=== PATIENT | female | born 1975 | race Caucasian/White ===

== ENCOUNTER 2016-08-27 18:28 | Emergency (ER) | payer SELFPAY ==
[~2016-08-27] VITALS: Ht 157.5 cm; Wt 57.0 kg
[~2016-08-27 18:28] MED LIST: CHLO25CA PO; CLON.1 PO
[2016-08-27 18:39] VITALS: BP 136/85; PULSE 96; RESP 22; TEMP 98; O2SAT 97
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
[2016-08-27] MEDS ORDERED: SODIUM CHLORIDE 0.9% FLUSH 10 ML FLUSH IVF PRN (19:00)
[2016-08-27 19:03] VITALS: BP 136/85; PULSE 79; RESP 18; O2SAT 97
[2016-08-27] MEDS ORDERED: ALPR1TAB3 PO (19:03)
[2016-08-27 19:07] VITALS: RESP 18; O2SAT 97
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
[2016-08-27] MEDS ORDERED: KETOROLAC TROMETHAMINE 60 MG/2 ML (IM) VIAL IM ONE (20:00)
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
[2016-08-27 20:47] LABS: BLOOD, URINE NEG (NEG); COMMENT (UR) CULT NOT INDICATED; CULTURE IF INDICATED CULT NOT INDICATED; GLUCOSE,URINE NEG (NEG); KETONE, URINE NEG (NEG); NITRITE,URINE NEG (NEG); PH, URINE 6.5 (5.0-8.5); SQUAMOUS EPITHELIAL CELL URINE 3 /hpf (0-5); URINE COLOR DARK-YELLOW (YELLW/STRAW)
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
[2016-08-27] MEDS ORDERED: EXTR500C PO (21:01)
[2016-08-27] MEDS ORDERED: IBUP800T23 PO (21:01)
[2016-08-27] MEDS ORDERED: ORPH100T99 PO (21:01)
== END 2016-08-27 22:06 | disposition home or self-care (01) ==
LOC: NEPC 18:28
DX: S16.1XXA Strain of muscle, fascia and tendon at neck level, initial encounter (principal); S80.212A Abrasion, left knee, initial encounter; S90.512A Abrasion, left ankle, initial encounter; S39.012A Strain of muscle, fascia and tendon of lower back, initial encounter; R51 Headache; R06.02 Shortness of breath; V03.99XA Pedestrian with other conveyance injured in collision with car, pick-up truck or van, unspecified whether traffic or nontraffic accident, initial encounter; Y93.55 Activity, bike riding; Y92.410 Unspecified street and highway as the place of occurrence of the external cause; Y99.9 Unspecified external cause status
CPT/HCPCS: 70450; 71010; 72100; 72125; 81001; 96372; 99285; J1885; L0150

== ENCOUNTER 2016-10-10 08:20 | Emergency (ER) | payer SELFPAY ==
[~2016-10-10 08:20] MED LIST changes: +ALPR1TAB3 PO; -CHLO25CA PO; -CLON.1 PO; +EXTR500C PO; +IBUP800T23 PO; +ORPH100T99 PO
[2016-10-10 08:22] VITALS: BP 136/92; PULSE 80; RESP 24; TEMP 97.8; O2SAT 99
[2016-10-10 08:32] VITALS: BP 136/78; PULSE 75; RESP 14; TEMP 98.5; O2SAT 97
[2016-10-10 08:43] VITALS: O2SAT 99
[2016-10-10] MEDS ORDERED: SODIUM CHLORIDE 0.9% FLUSH 10 ML FLUSH IVF PRN (08:45)
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
[2016-10-10] MEDS ORDERED: LORazepam 2 MG/ML VIAL IV PUSH ONE (09:00)
[2016-10-10] MEDS ORDERED: DICYCLOMINE HCL 20 MG/2 ML VIAL IM ONE (09:00)
[2016-10-10] MEDS ORDERED: SODIUM CHLOR 0.9% 1000 ML INJ 1,000 ML IV ONE (09:00)
[2016-10-10 09:52] LABS: BLOOD, URINE NEG (NEG); GLUCOSE,URINE NEG (NEG); KETONE, URINE NEG (NEG); NITRITE,URINE NEG (NEG); PH, URINE 5.5 (5.0-8.5); SQUAMOUS EPITHELIAL CELL URINE <1 /hpf (0-5); URINE COLOR LIGHT-YELLOW (YELLW/STRAW)
[2016-10-10 09:54] LABS: COMMENT (UR) CULT NOT INDICATED; CULTURE IF INDICATED CULT NOT INDICATED
[2016-10-10 10:12] LABS: ANION GAP 9 MEQ/L (5-15); AST (GOT) 30 U/L (15-37); BICARBONATE 29.7 MEQ/L (21.0-32.0); BLOOD UREA NITROGEN 10 MG/DL (7-18); CHLORIDE 102 MEQ/L (98-107); GLOMERULAR FILTRATION RATE 110 ML/MIN (>89); POTASSIUM 3.9 MEQ/L (3.5-5.1); SODIUM (NA) 141 MEQ/L (136-145)
[2016-10-10 10:13] LABS: ALT (GPT) 43 U/L (10-53)
[2016-10-10 10:15] LABS: ALKALINE PHOSPHATASE 59 U/L (45-117); TOTAL BILIRUBIN ADULT 0.3 MG/DL (0.2-1.0)
[2016-10-10 10:16] VITALS: BP 134/83
[2016-10-10 10:17] VITALS: BP 133/80; RESP 14
[2016-10-10 10:18] VITALS: BP 146/93; RESP 14
[2016-10-10 10:22] LABS: AUTOMATED NEUTROPHIL # 2.6 TH/MM3 (1.8-7.7); BASOPHIL % 0.4 % (0.0-2.0); EOSINOPHIL # 0.5 TH/MM3 (0-0.4); EOSINOPHIL % 7.6 % (0.0-4.0); HEMATOCRIT 30.9 % (35.0-46.0); HEMO FLAGS DIFF FINAL; LYMPH % 41.9 % (9.0-44.0); LYMPHOCYTE # 2.6 TH/MM3 (1.0-4.8); MEAN CELL VOLUME 91.1 FL (80.0-100.0); MEAN CORPUSCULAR HEMOGLOBIN 30.8 PG (27.0-34.0); MEAN CORPUSCULAR HGB CONC 33.8 % (32.0-36.0); MONO % 8.3 % (0.0-8.0); NEUT % 41.8 % (16.0-70.0); PLATELET COUNT 214 TH/MM3 (150-450); RED BLOOD COUNT 3.39 MIL/MM3 (4.00-5.30); RED CELL DISTRIBUTION WIDTH 13.8 % (11.6-17.2); WHITE BLOOD COUNT 6.3 TH/MM3 (4.0-11.0)
[2016-10-10] MEDS ORDERED: LORA-392 PO (10:23)
--- NOTE | 2016-10-11 09:49 | EKG ---
Date Performed: 10/10/2016 Time Performed: 09:03:14 PTAGE: 41 years EKG: Sinus rhythm POSSIBLE LEFT ATRIAL ENLARGEMENT POSSIBLE LEFT VENTRICULAR HYPERTROPHY ABNORMAL ECG PREVIOUS TRACING : 02/04/2010 20.53 DOCTOR: Frankie Rosado Interpretating Date/Time 10/11/2016 09:39:51
== END 2016-10-10 11:30 | disposition home or self-care (01) ==
LOC: NEPC 08:20
DX: R11.2 Nausea with vomiting, unspecified (principal); D64.9 Anemia, unspecified; R10.9 Unspecified abdominal pain; R42 Dizziness and giddiness
CPT/HCPCS: 80053; 81001; 83690; 85025; 93005; 96361; 96372; 96374; 99284; J0500; J2060; J7030

== ENCOUNTER 2016-12-07 13:57 | Emergency (ER) | payer SELFPAY ==
[~2016-12-07] VITALS: Ht 157.5 cm; Wt 55.0 kg
[~2016-12-07 13:57] MED LIST changes: +LORA-392 PO
[2016-12-07] MEDS ORDERED: SODIUM CHLOR 0.9% 1000 ML INJ 1,000 ML IV SCH (14:48)
[2016-12-07] MEDS ORDERED: PANTOPRAZOLE SODIUM 40 MG VIAL IVP ONE (15:00)
[2016-12-07] MEDS ORDERED: ONDANSETRON HCL 4 MG/2 ML VIAL IVP ONE (15:00)
[2016-12-07] MEDS ORDERED: SODIUM CHLORIDE 0.9% FLUSH 10 ML FLUSH IV FLUSH PRN (15:00)
--- NOTE | 2016-12-07 15:01 | PD ---
HPI Chief Complaint: nausea vomiting Time Seen by Provider: 15:00 Travel History International Travel<30 days: No Contact w/Intl Traveler<30days: No History of Present Illness HPI Patient comes in complaining of nausea and vomiting ongoing for several days after trying to withdraw herself off of methadone. Patient states she went to the methadone clinic today received half a dose of her methadone however states she vomited it before she was even able to swallow it down all the way. Patient denies anything making her symptoms better or worse. Reports associated cramping abdominal pain without radiation. Patient reports prior to today last dose of methadone was 11 days ago. Denies any blood in the vomit and reports this is nonbilious. Denies anything making it better or worse. Denies any chest pain, shortness of breath, back pain, loss or change in bowel or bladder, or . PFSH Past Medical History Blood Disorders: No Anxiety: Yes Depression: No Cardiovascular Problems: No Diabetes: No Endocrine: No Genitourinary: No Immune Disorder: No Musculoskeletal: No Neurologic: No Psychiatric: Yes Reproductive: No Respiratory: No Sickle Cell Disease: No Thyroid Disease: No : 3 Para: 3 Tubal Ligation: Yes Past Surgical History Abdominal Surgery: No AICD: No Appendectomy: Yes Arteriovenous Shunt: No Cardiac Surgery: No Ear Surgery: No Endocrine Surgery: No Eye Surgery: No Genitourinary Surgery: No Gynecologic Surgery: No Joint Replacement: No Oral Surgery: No Pacemaker: No Thoracic Surgery: No Other Surgery: Yes Social History Alcohol Use: Yes (OCCATIONALLY) Tobacco Use: No (<1PPD) Substance Use: No (DENIES USE) Allergies-Medications (Allergen,Severity, Reaction): Coded Allergies: Codeine (Verified Allergy, Unknown, Chest Pain, 08/27/16) Reported Meds & Prescriptions Reported Meds & Active Scripts Active Phenergan Supp (Promethazine HCl) 12.5 Mg Supp 12.5 Mg RECTAL Q6H PRN Zofran Odt (Ondansetron Odt) 4 Mg Tab 4 Mg SL Q6HR PRN Ativan (Lorazepam) 0.5 Mg Tab 0.5 Mg PO Q8H PRN Orphenadrine CR (Orphenadrine Citrate) 100 Mg Tab 100 Mg PO Q12HR Ibuprofen 800 Mg Tab 800 Mg PO Q8H PRN Acetaminophen Extra Strength (Acetaminophen) 500 Mg Cap 1,000 Mg PO Q6H PRN Reported Alprazolam 1 Mg Tab 1 Mg PO Q6H PRN Review of Systems Except as stated in HPI: all other systems reviewed are Neg Physical Exam Narrative GENERAL: Well-developed, well nourished, in no acute distress, and non-ill appearing. SKIN: Focused skin assessment warm and dry. HEAD: Atraumatic. Normocephalic. EYES: Pupils equal and round. EOMI. No scleral icterus. No injection or drainage. ENT: No nasal bleeding or discharge. Mucous membranes pink and moist. NECK: Trachea midline. Supple. No nuclear rigidity. CARDIOVASCULAR: Regular rate and rhythm. No murmur appreciated. RESPIRATORY: No accessory muscle use. No respiratory distress. Clear to auscultation. Breath sounds equal bilaterally. GASTROINTESTINAL: Abdomen soft, non-tender, nondistended, and no guarding. Hepatic and splenic margins not palpable. Normal bowel sounds 4. No pulsatile mass. MUSCULOSKELETAL: No obvious deformities. No clubbing. No cyanosis. No edema. Full range of motion. NEUROLOGICAL: Awake and alert. No obvious cranial nerve deficits. Motor grossly within normal limits. Normal speech. PSYCHIATRIC: Appropriate mood and affect; insight and judgment normal. Data Data Last Documented VS Vital Signs Date Time Temp Pulse Resp B/P Pulse Ox O2 Delivery O2 Flow Rate FiO2 12/07/16 17:27 52 20 136/51 97 12/07/16 15:08 99.3 12/07/16 15:07 Room Air Orders Complete Blood Count With Diff (12/07/16 14:48) Comprehensive Metabolic Panel (12/07/16 14:48) Lipase (12/07/16 14:48) Iv Access Insert/Monitor (12/07/16 14:48) Ecg Monitoring (12/07/16 14:48) Oximetry (12/07/16 14:48) Ondansetron Inj (Zofran Inj) (12/07/16 15:00) Pantoprazole Inj (Protonix Inj) (12/07/16 15:00) Sodium Chlor 0.9% 1000 Ml Inj (Ns 1000 M (12/07/16 14:48) Sodium Chloride 0.9% Flush (Ns Flush) (12/07/16 15:00) Labs Laboratory Tests Test 12/07/16 16:10 White Blood Count 10.4 TH/MM3 Red Blood Count 4.81 MIL/MM3 Hemoglobin 15.2 GM/DL Hematocrit 44.7 % Mean Corpuscular Volume 92.8 FL Mean Corpuscular Hemoglobin 31.5 PG Mean Corpuscular Hemoglobin 34.0 % Concent Red Cell Distribution Width 14.2 % Platelet Count 358 TH/MM3 Mean Platelet Volume 8.9 FL Neutrophils (%) (Auto) 85.1 % Lymphocytes (%) (Auto) 12.0 % Monocytes (%) (Auto) 2.4 % Eosinophils (%) (Auto) 0.2 % Basophils (%) (Auto) 0.3 % Neutrophils # (Auto) 8.8 TH/MM3 Lymphocytes # (Auto) 1.2 TH/MM3 Monocytes # (Auto) 0.3 TH/MM3 Eosinophils # (Auto) 0.0 TH/MM3 Basophils # (Auto) 0.0 TH/MM3 CBC Comment DIFF FINAL Differential Comment Sodium Level 142 MEQ/L Potassium Level 3.5 MEQ/L Chloride Level 104 MEQ/L Carbon Dioxide Level 28.6 MEQ/L Anion Gap 9 MEQ/L Blood Urea Nitrogen 13 MG/DL Creatinine 0.73 MG/DL Estimat Glomerular Filtration 88 ML/MIN Rate Random Glucose 107 MG/DL Calcium Level 9.5 MG/DL Total Bilirubin 0.5 MG/DL Aspartate Amino Transf 23 U/L (AST/SGOT) Alanine Aminotransferase 37 U/L (ALT/SGPT) Alkaline Phosphatase 64 U/L Total Protein 8.6 GM/DL Albumin 4.0 GM/DL Lipase 82 U/L [facility] Medical Decision Making Medical Screen Exam Complete: Yes Emergency Medical Condition: Yes Differential Diagnosis Nausea vomiting, electrolyte abnormality, methadone withdrawal, dehydration, other Narrative Course Patient looks great, non-ill appearing but does appear slightly volume depleted without evidence of significant dehydration. The patient was given IVF in the Emergency Department for rehydration. The patient responded well and is tolerating fluids and appears hydrated. I suspect viral etiology versus possible gastritis versus possible methadone withdrawal by history and exam. The abdominal exam is unremarkable without defined focal tenderness. There are normal active bowel sounds without any masses, distension, or significant tenderness. There was no evidence of an acute, surgical abdomen at this time. There was no clinical evidence to support cholecystitis/cholelithiasis, pancreatitis, perforation of gastric ulcer, colitis, diverticulitis, peritonitis , obstruction, volvulus, early appendicitis, or hernial incarceration or strangulation at this time. There was no evidence to support vascular pathology such as AAA, mesenteric ischemia. There was also no clinical evidence by history , exam or risk factors to suggest atypical presentation of cardiac disease such as ACS, AMI or atypical angina. No evidence to suggest genitourinary etiology as well. During the course of the ED visit, the patient noted improvement and was noted making herself vomit by sticking her hand down her throat. Clinical picture was discussed with the patient, as well as plan of care. The patient was instructed to follow up with their physician. Abdominal pain warnings were discussed with the patient. The patient is to return if worsens, pain worsens or changes, develop fever, inability to tolerate fluids with or without vomiting , increased vomiting, blood in vomit, unable to establish follow up or as needed. The patient agrees with plan. The patient was tolerating fluids at time of discharge. Patient in no obvious distress upon re-evaluation. All pertinent laboratory result(s) discussed with patient. Discussed patient with Dr. Medina prior to discharge, who saw and evaluated the patient and is in agreement with plan of care and disposition. Any questions/concerns in reference to patient diagnosis/ condition discussed and clarified prior to patient's discharge. Reinforced sheer importance of close follow up with patient's primary physician or primary care clinic. Instructed patient to return to ED immediately, if symptoms return/ worsen. Pt showed understanding of above instructions. Further instructions and recommendations were detailed in discharge paperwork. Pt ambulated without difficulty out of ED at discharge. Diagnosis Primary Impression: Nausea & vomiting Qualified Code: R11.2 - Non-intractable vomiting with nausea, unspecified vomiting type Referrals: [facility] Patient Instructions: Acute Nausea and Vomiting (ED), General Instructions Additional Instructions: Follow-up with your primary care physician and/or Ramy Driver this week for reevaluation and further detox. Take all medication as prescribed. Return to the emergency department if symptoms get worse. Med/Other Pt SpecificInfo: Prescription(s) given Scripts Promethazine Supp (Phenergan Supp)12.5 Mg Supp12.5 Mg RECTAL Q6H PRN (NAUSEA OR VOMITING) #9 SUPP Ref 0 Prov:Rad Medina MD 12/07/16 Ondansetron Odt (Zofran Odt)4 Mg Tab4 Mg SL Q6HR PRN (Nausea/Vomiting) #12 TAB Ref 0 Prov:Rad Medina MD 12/07/16 Disposition: 01 DISCHARGE HOME Condition: Stable Keegan Dow Dec 07, 2016 15:01
[2016-12-07 15:07] VITALS: O2SAT 95
[2016-12-07 15:08] VITALS: PULSE 54; RESP 13; TEMP 99.3; O2SAT 99
[2016-12-07 16:24] LABS: AUTOMATED NEUTROPHIL # 8.8 TH/MM3 (1.8-7.7); BASOPHIL % 0.3 % (0.0-2.0); EOSINOPHIL % 0.2 % (0.0-4.0); HEMATOCRIT 44.7 % (35.0-46.0); HEMO FLAGS DIFF FINAL; LYMPHOCYTE # 1.2 TH/MM3 (1.0-4.8); MEAN CELL VOLUME 92.8 FL (80.0-100.0); MEAN CORPUSCULAR HEMOGLOBIN 31.5 PG (27.0-34.0); MONO % 2.4 % (0.0-8.0); NEUT % 85.1 % (16.0-70.0); PLATELET COUNT 358 TH/MM3 (150-450); RED BLOOD COUNT 4.81 MIL/MM3 (4.00-5.30); RED CELL DISTRIBUTION WIDTH 14.2 % (11.6-17.2); WHITE BLOOD COUNT 10.4 TH/MM3 (4.0-11.0)
[2016-12-07 16:41] LABS: ANION GAP 9 MEQ/L (5-15); AST (GOT) 23 U/L (15-37); BICARBONATE 28.6 MEQ/L (21.0-32.0); BLOOD UREA NITROGEN 13 MG/DL (7-18); CHLORIDE 104 MEQ/L (98-107); GLOMERULAR FILTRATION RATE 88 ML/MIN (>89); POTASSIUM 3.5 MEQ/L (3.5-5.1); SODIUM (NA) 142 MEQ/L (136-145)
[2016-12-07 16:45] LABS: ALKALINE PHOSPHATASE 64 U/L (45-117); ALT (GPT) 37 U/L (10-53); TOTAL BILIRUBIN ADULT 0.5 MG/DL (0.2-1.0)
[2016-12-07] MEDS ORDERED: ZOFR4TAB3 SL (17:17)
[2016-12-07] MEDS ORDERED: PROM2SUP RECTAL (17:17)
[2016-12-07 17:27] VITALS: BP 136/51
== END 2016-12-07 17:38 | disposition home or self-care (01) ==
LOC: NEPE 13:57
DX: R11.2 Nausea with vomiting, unspecified (principal); E86.9 Volume depletion, unspecified; R10.9 Unspecified abdominal pain; F41.9 Anxiety disorder, unspecified
CPT/HCPCS: 80053; 83690; 85025; 96361; 96374; 96375; 99284; C9113; J2405; J7030

== ENCOUNTER 2018-02-13 23:04 | Inpatient (IN) ==
[2018-02-14 00:39] LABS: Baso # (Auto) 0.1 th/mm3 (0.0-0.2); Baso % (Auto) 0.6 % (0.0-2.0); Eos # (Auto) 0.1 th/mm3 (0.0-0.4); Eos % (Auto) 1.2 % (0.0-4.0); Hematocrit 38.2 % (35.0-46.0); Lymph # (Auto) 1.8 th/mm3 (1.0-4.8); Lymph % (Auto) 22.5 % (9.0-44.0); Mean Corpuscular HGB Conc 34.1 % (32.0-36.0); Mean Corpuscular Hemoglobin 31.9 pg (27.0-34.0); Mean Corpuscular Volume 93.5 fL (80.0-100.0); Mean Platelet Volume 8.9 fL (7.0-11.0); Mono # (Auto) 0.7 th/mm3 (0.0-0.9); Mono % (Auto) 9.3 % (0.0-8.0); Neut # (Auto) 5.2 th/mm3 (1.8-7.7); Neut % (Auto) 66.4 % (16.0-70.0); Platelet Count 267 th/mm3 (150-450); Red Blood Count 4.08 mil/mm3 (4.00-5.30); Red Cell Distribution Width 13.1 % (11.6-17.2); White Blood Count 7.8 th/mm3 (4.0-11.0)
[2018-02-14 00:59] LABS: Albumin 3.8 g/dL (3.4-5.0); Anion Gap 9 meq/L (5-15); Aspartate Aminotransferase 58 U/L (15-37); Blood Urea Nitrogen 14 mg/dL (7-18); Carbon Dioxide 25.5 meq/L (21.0-32.0); Chloride 106 meq/L (98-107); Glomerular Filtration Rate Greater Than 89 mL/min (>89); Glucose,Random 106 mg/dL (74-106); Potassium 3.3 meq/L (3.5-5.1); Sodium 140 meq/L (136-145)
[2018-02-14 01:01] LABS: Alanine Aminotransferase 54 U/L (10-53)
[2018-02-14 01:10] LABS: Alkaline Phosphatase 51 U/L (45-117); Total Protein 8.1 g/dL (6.4-8.2)
[2018-02-14 01:13] LABS: Amphetamine Screen,Urine Neg (Neg); Barbiturate Screen,Urine Neg (Neg); Cannabinoid Screen,Urine Pos (Neg); Cocaine Screen,Urine Pos (Neg)
[2018-02-14 01:15] LABS: Opiate Screen,Urine Pos (Neg)
[2018-02-14] MEDS ORDERED: QUEtiapine 25 MG Tablet PO ONE (05:20)
[2018-02-14] MEDS ORDERED: LORazepam 1 MG Tablet PO ONE (05:21)
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
[2018-02-14] MEDS ORDERED: QUEtiapine 100 MG Tablet PO ONE (06:51)
[2018-02-14] MEDS ORDERED: Haloperidol Inj 5 MG/ML Ampul IM STA (09:56)
[2018-02-14] MEDS ORDERED: Haloperidol Inj 5 MG/ML Ampul ONE (10:04)
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
[2018-02-14] MEDS ORDERED: Chlorpromazine Inj 50 MG/2 ML Ampule IM STA (15:43)
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
[2018-02-15] MEDS ORDERED: Acetaminophen 325 MG Tablet PO PRN (02:56)
[2018-02-15] MEDS ORDERED: Aluminum/Magnesium/Simethacone Susp 30 ML UDC PO PRN (02:56)
[2018-02-15] MEDS ORDERED: LORazepam 1 MG Tablet PO PRN ×2 (02:56→03:05)
[2018-02-15 07:53] LABS: Anion Gap 10 meq/L (5-15); Blood Urea Nitrogen 11 mg/dL (7-18); Calcium 8.7 mg/dL (8.5-10.1); Carbon Dioxide 26.3 meq/L (21.0-32.0); Chloride 106 meq/L (98-107); Cholesterol 155 mg/dL (120-200); Glomerular Filtration Rate Greater Than 89 mL/min (>89); Glucose,Random 82 mg/dL (74-106); Sodium 142 meq/L (136-145)
[2018-02-15 07:59] LABS: Chol/HDL Ratio 1.68 Ratio; LDL Cholesterol,Calculated 52 mg/dL (0-99); Triglycerides 54 mg/dL (42-150)
[2018-02-15 08:02] LABS: Potassium 2.9 meq/L (3.5-5.1)
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
[2018-02-15 15:24] LABS: Anion Gap 6 meq/L (5-15); Blood Urea Nitrogen 13 mg/dL (7-18); Calcium 8.9 mg/dL (8.5-10.1); Carbon Dioxide 27.7 meq/L (21.0-32.0); Chloride 108 meq/L (98-107); Glomerular Filtration Rate Greater Than 89 mL/min (>89); Glucose,Random 96 mg/dL (74-106); Potassium 3.6 meq/L (3.5-5.1); Sodium 142 meq/L (136-145)
--- NOTE | 2018-02-16 11:49 | P.PNPSY ---
Subjective Remarks: Patient seen and examined with nurse. Chart reviewed. Case discussed with nursing staff. No behavioral issues noted overnight. CIWA score minimal. Counselor yesterday had obtained collateral information from the patient's mother, and I discussed this with the counselor. On my examination today, the patient insists that she does not suffer from a mental illness. She denies any SI, HI. Denies any AVH. Denies any ongoing paranoia or other psychotic material. No reported mood symptoms, although I do perceive an irritable edge. She does complain of some anxiety, but this seems largely situational. She is agreeable to addition of as needed hydroxyzine for management of anxiety. Remains perseverative on discharge. Insight into need for psychiatric observation and ownership of behaviors prior to admission that necessitated psychiatric observation are both limited. No physical complaints. Vital Signs Temp Pulse Resp BP Pulse Ox 02/16/18 05:57 97.7 F 93 H 18 124/76 97 02/15/18 18:58 98.6 F 17 135/79 99 Laboratory Results - last 24 hr 02/15/18 02/15/18 05:35 14:29 Sodium 142 Potassium 3.6 Chloride 108 H Carbon Dioxide 27.7 Anion Gap 6 BUN 13 Creatinine 0.65 Estimated GFR Greater than 89 Random Glucose 96 Hemoglobin A1c 5.0 Calcium 8.9 Labs reviewed. Review of Systems All other systems reviewed negative except as stated in HPI Mental Status Examination Appearance: Appropriate Consciousness: Alert Orientation: Person, Place (At least) Motor Activity: Other (Mild resting hand tremor, possibly chronic, but no diaphoresis, no mydriasis, no tongue fasciculations, no other signs of withdrawal noted. No other motor abnormalities noted.) Speech: Unremarkable Language: Adequate Fund of Knowledge: Adequate Attention and Concentration: Adequate Memory: Unremarkable (Grossly intact on clinical exam) Mood: Irritable Affect: Irritable Thought Process & Associations: Intact Thought Content: Preoccupations (With discharge) Hallucination Type: None Delusion Type: None Suicidal Ideation: No Suicidal Plan: No Suicidal Intention: No Homicidal Ideation: No Homicidal Plan: No Homicidal Intention: No Insight: Poor Judgment: Poor Assessment and Plan - Assessment (1) Adjustment disorder with other symptoms Code(s): F43.29 - Adjustment disorder with other symptoms Status: Acute (2) Polysubstance abuse Code(s): F19.10 - Other psychoactive substance abuse, uncomplicated Status: Acute - Plan Plan: Add Atarax as needed for anxiety. Continue to monitor on the inpatient unit for signs or symptoms of psychiatric illness other than substance use issues. Continue other medications and care as ordered. Justification for Continued Inpatient Stay: Monitoring for impairment in safety. Discharge Planning: [place] court tomorrow. Request Healthcare Surrogate/Guardian Advocate?: No
[2018-02-16] MEDS ORDERED: Loperamide 2 MG Capsule PO PRN (17:45)
--- NOTE | 2018-02-16 20:13 | ECG ---
Date Performed: 02/15/2018 Time Performed: 17:00:16 PTAGE: 42 years EKG: SINUS TACHYCARDIA WITH SHORT AK INTERVAL MINIMAL VOLTAGE CRITERIA FOR LVH, CONSIDER NORMAL VARIANT When compared to previous tracing, sinus rate has increased. ABNORMAL RHYTHM ECG PREVIOUS TRACING : 10/10/2016 09.03 DOCTOR: Paul Sanchez Interpretating Date/Time 02/16/2018 20:12:05
[2018-02-17 05:34] LABS: Amphetamine Urine With Conf Neg (Neg)
[2018-02-17 05:41] LABS: Benzodiazepine Urine With Conf Pos (Neg)
[2018-02-17 06:20] VITALS: BP 133/88; PULSE 99; RESP 16; TEMP 98.4; O2SAT 98
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
== END 2018-02-17 12:35 | disposition left against medical advice (07) ==
LOC: NEPE 23:04 → NEDA 02-14 17:56 → H270 02-14 19:20
PROVIDERS: ADMIT Psychiatry & Neurology Psychiatry; ATTEND Psychiatry & Neurology Psychiatry